=== PATIENT | female | born 1990 | race Caucasian/White ===

== ENCOUNTER → 2019-04-13 | Outpatient (CLI) | payer OTHER ==
[2019-04-13 12:24] LABS: African American GFR (CKD) >90 (>60 ml/min/1.73 sqM); Glucose 75 mg/dL (74-99)
[2019-04-13 12:33] LABS: HCT 38.5 % (34.0-46.0); HGB 12.5 gm/dL (11.4-16.0); MCH 29.2 pg (25.0-35.0); MCHC 32.5 g/dL (31.0-37.0); MCV 89.9 fL (80.0-100.0); Mean Platelet Volume 6.5; Platelet Count 398 k/uL (150-450); RBC 4.28 m/uL (3.80-5.40); RDW 13.3 % (11.5-15.5); WBC 9.9 k/uL (3.8-10.6)
--- NOTE | 2019-04-13 16:54 | US ---
EXAMINATION TYPE: Ultrasound OB <= 14 week fetus DATE OF EXAM: 04/13/2019 12:34 PM COMPARISON: NONE CLINICAL HISTORY: 28-year-old female Z36 CONFIRM DATES. EXAM PERFORMED: Transabdominal (TA) TECHNIQUE: EXAM MEASUREMENTS: GESTATIONAL AGE / DATING Physician Established: (12 weeks/1 days) EDC: 10/25/2019 Dates by LMP: (12 weeks/1 days) EDC: 10/25/2019 Dates by First Scan: No previous this is first scan Dates by Current Scan for: (12 weeks/0 days) EDC: 10/25/2019 MATERNAL ANATOMY Uterus: 14.7 x 7.0 x 8.5 cm Right Ovary: wnl Left Ovary: wnl Post CDS / Adnexa: wnl Presence of free fluid: No Presence of corpus luteal cyst: No Presence of subchorionic bleed: No GESTATION / SURVEY CRL: 5.3 cm (12 weeks/0 days) Yolk Sac (normal less than 6mm): 5.4 mm, upper limits of normal Heart Rate: 160 bpm Rhythm: Normal IUP: Viable IUP Date of LMP: 01/18/2019 Beta HcG (if available): Not available at this time Sanitation Manager notes: Viable IUP, measurements consistent with dates. IMPRESSION: 1. Single live intrauterine with estimated gestational age of 12 weeks 1 day by LMP. Curren t ultrasound biometry is concordant (12 weeks 0 days). 2. Complete survey recommended at 18-20 weeks.
[2019-04-13 18:49] LABS: HIV 1 AB Non-Reactive (Non-Reactive); HIV AB P24 Non-Reactive (Non-Reactive); HIV P24 AG Non-Reactive (Non-Reactive)
[2019-04-14 05:36] LABS: Toxoplasma Antibody (IgG) <3.0 IU/mL (<7.2); Toxoplasma Antibody (IgM) <3.0 AU/mL (<8.0)
== END | disposition home or self-care (01) ==
LOC: RADUSWWP 11:53
PROVIDERS: ATTEND Obstetrics & Gynecology
DX: Z34.81 Encounter for supervision of other normal pregnancy, first trimester (principal); Z3A.20 20 weeks gestation of pregnancy
CPT/HCPCS: 76801; 82565; 82947; 85027; 86762; 86777; 86778; 86780; 86850; 86900; 86901; 87340; 87390

== ENCOUNTER 2019-10-10 19:17 | Observation (INO) | payer OTHER ==
[2019-10-10] MEDS: LACTATED RINGERS 1,000 ML IV ONE ×2 (19:53→20:20)
[2019-10-10] MEDS ORDERED: ONDANSETRON 4 MG/2 ML VIAL IVP ONE (19:54)
[2019-10-10] MEDS ORDERED: ACETAMINOPHEN TAB 500 MG TAB PO STA (20:09)
[2019-10-10 20:11] LABS: Amorphous Sediment,Urine Rare /hpf; Appearance,Urine Cloudy (Clear); Bacteria,Urine Moderate /hpf; Bilirubin,Urine Negative (Negative); Blood,Urine Negative (Negative); Color,Urine Yellow; Glucose,Urine (UA) Negative (Negative); Hyaline Casts,Urine 3 /lpf (0-2); Ketones,Urine 4+ (Negative); Leukocyte Esterase,Urine Large (Negative); Mucus,Urine Few /hpf; Nitrite,Urine Negative (Negative); Protein,Urine 1+ (Negative); Squamous Epithelial Cell,Urine 53 /hpf (0-4); WBC,Urine 29 /hpf (0-5)
[2019-10-10 20:14] LABS: ALT 15 U/L (4-34); AST 28 U/L (14-36); African American GFR (CKD) >90 (>60 ml/min/1.73 sqM); Albumin 3.7 g/dL (3.5-5.0); Alkaline Phosphatase 227 U/L (38-126); Anion Gap 11 mmol/L; Blood Urea Nitrogen 11 mg/dL (7-17); Calcium 9.2 mg/dL (8.4-10.2); Carbon Dioxide 18 mmol/L (22-30); Chloride 105 mmol/L (98-107); Glucose 88 mg/dL (74-99); Non-African American GFR(CKD) >90 (>60 ml/min/1.73 sqM); Potassium 4.1 mmol/L (3.5-5.1); Sodium 134 mmol/L (137-145); Total Protein 6.8 g/dL (6.3-8.2)
[2019-10-10 20:15] LABS: Basophils # (A) 0.1 k/uL (0-0.2); Basophils % (A) 1 %; Eosinophils # (A) 0.1 k/uL (0-0.7); Eosinophils % (A) 1 %; HCT 40.6 % (34.0-46.0); HGB 13.4 gm/dL (11.4-16.0); Lymphocytes # (A) 0.5 k/uL (1.0-4.8); Lymphocytes % (A) 4 %; MCH 30.8 pg (25.0-35.0); MCHC 33.1 g/dL (31.0-37.0); MCV 93.2 fL (80.0-100.0); Mean Platelet Volume 8.3; Monocytes # (A) 0.4 k/uL (0-1.0); Monocytes % (A) 3 %; Neutrophils # (A) 11.6 k/uL (1.3-7.7); Neutrophils % (A) 90 %; Platelet Count 284 k/uL (150-450); RBC 4.35 m/uL (3.80-5.40); RDW 13.4 % (11.5-15.5); WBC 12.8 k/uL (3.8-10.6)
[2019-10-10] MEDS ORDERED: ONDANSETRON 4 MG/2 ML VIAL IVP PRN (20:37)
[2019-10-10] MEDS ORDERED: LACTATED RINGERS 1,000 ML IV ONE (20:37)
[2019-10-10 21:18] VITALS: RESP 18
[2019-10-11 04:10] VITALS: BP 107/62; PULSE 94; TEMP 97.5
--- NOTE | 2019-10-11 06:56 | P.PN ---
Progress Note - Text Progress Note Date: 10/11/19 Patient is sleeping without new complaints. Please see dictated H&P for this patient's admission. Dr. Nair. In summary patient was admitted earlier last evening after having prolonged nausea vomiting. Patient was felt to be dehydrated and given IV hydration. Patient was admitted for observation to rule out labor and due to the hydration. Proximally 3 AM patient felt much better and fell to sleep. heart tones are category 1. Patient's felt to be stable for discharge home follow up with me tomorrow for an OB visit and her scheduled ultrasound. It appears her nausea vomiting has resolved and there is no evidence of maternal compromise.
--- NOTE | 2019-10-11 06:59 | P.DS ---
Providers Date of admission: 10/10/19 20:41 Expected date of discharge: 10/11/19 Attending physician: Bandar Jesus Primary care physician: Stated None Hospital Course: Please see dictated H&P per Dr. Nair and this patient's admission. Brief summary this is a pleasant 29-year-old 2 para 1 female 37-6/7 weeks admitted with prolonged nausea and vomiting and contractions. Patient is given IV hydration admitted for observation. She subsequently felt much better and did go to sleep. Patient was found not to be in labor and the nausea vomiting resolved. Patient's felt stable for discharge home follow up with me tomorrow for an OB ultrasound and visit. Return if her symptoms return or she felt she was in labor. Patient Condition at Discharge: Stable Plan - Discharge Summary New Discharge Prescriptions: No Action Pnv No.95/Ferrous Fum/Folic AC [ Multivitamin Tablet] 1 each PO DAILY Discharge Medication List Pnv No.95/Ferrous Fum/Folic AC [ Multivitamin Tablet] 1 each PO DAILY 10/10/19 [History] Follow up Appointment(s)/Referral(s): Bandar Jesus MD [STAFF PHYSICIAN] - 10/12/19 Patient Instructions/Handouts: Dehydration (DC) Discharge Disposition: HOME SELF-CARE
--- NOTE | 2019-11-02 13:32 | P.HPOB ---
History of Present Illness H&P Date: 11/02/19 Chief Complaint: Intrauterine term: Acute nausea and vomiting Maria C has been nauseous and vomiting throughout the day and she is admitted for IV hydration. She is a prior section. She is a history of cardiac anomaly with her first child and has had a maternal- evaluation for this baby. Other than IV hydration we will continue monitoring and making sure there no other issues or competitions with her . It is noted that she had 4+ ketones and is acutely dehydrated. Past Medical History Past Medical History: No Reported History History of Any Multi-Drug Resistant Organisms: None Reported Past Surgical History: No Surgical Hx Reported Past Psychological History: No Psychological Hx Reported Smoking Status: Never smoker Past Alcohol Use History: Occasional Past Drug Use History: None Reported - Past Family History Father Family Medical History: No Reported History Daughter(s) Additional Family Medical History / Comment(s): first , daughter was born with cleft palette and mitral valve regurgitation Medications and Allergies Home Medications Medication Instructions Recorded Confirmed Type Pnv No.95/Ferrous Fum/Folic AC 1 each PO DAILY 10/10/19 10/18/19 History [ Multivitamin Tablet] Ibuprofen [Motrin] 600 mg PO Q6HR PRN #30 tab 10/19/19 Rx Allergies Allergy/AdvReac Type Severity Reaction Status Date / Time No Known Allergies Allergy Verified 10/18/19 06:07 Exam Osteopathic Statement: *. No significant issues noted on an osteopathic structural exam other than those noted in the History and Physical/Consult. - OBG Physical Exam Breast: both: normal (no masses) Abdomen: bowel sounds normal, no diffuse tenderness, no bruit present, no guarding noted, no hepatomegaly, no splenomegaly, no mass Vulva: both: normal Vagina: normal moisture, no discharge Cervix: no lesion, no discharge Uterus: normal size, normal contour Adnexa: both: normal Anus/Rectum: normal perianal skin, no rectal mass, no hemorrhoids, heme negative Results Result Diagrams: 10/10/19 19:55 10/10/19 19:55
== END 2019-10-11 08:15 | disposition home or self-care (01) ==
LOC: FBPOP 19:17 → 4FBP 20:41
PROVIDERS: ADMIT Obstetrics & Gynecology; ATTEND Obstetrics & Gynecology
DX: O26.893 Other specified pregnancy related conditions, third trimester (principal); E86.0 Dehydration; O21.9 Vomiting of pregnancy, unspecified; Z3A.37 37 weeks gestation of pregnancy; Z79.899 Other long term (current) drug therapy
CPT/HCPCS: 59025; 96374; 80053; 85025; 81001; G0463; G0378 ×2; J2405; 96361; 99214

== ENCOUNTER 2019-10-18 06:03 | Inpatient (IN) | payer OTHER ==
[2019-10-18] MEDS: LACTATED RINGERS 1,000 ML IV SCH ×3 (06:06→12:35)
[2019-10-18] MEDS ORDERED: OXYTOCIN 10 UNIT/ML 1 ML VIAL IM PRN (06:07)
[2019-10-18] MEDS ORDERED: TERBUTALINE 1 MG/ML VIAL SQ PRN (06:07)
[2019-10-18] MEDS ORDERED: LIDOCAINE 0.5% (PF) 5 MG/ML (50 ML SDV) SQ PRN (06:07)
[2019-10-18] MEDS ORDERED: CARBOPROST TROMETHAMINE 250 MCG/ML 1 ML AMP IM PRN (06:07)
[2019-10-18] MEDS ORDERED: METHYLERGONOVINE 0.2 MG/ML 1 ML AMP IM PRN (06:07)
[2019-10-18] MEDS ORDERED: OXYTOCIN 30 UNITS/500 ML NS 30 UNIT in SALINE 1 500ML.BAG IV SCH (06:07)
--- NOTE | 2019-10-18 06:34 | P.HPOB ---
History of Present Illness H&P Date: 10/18/19 Chief Complaint: Requested induction of labor This patient is a pleasant 29-year-old 2 para 1 female estimated date of confinement 10/25/2019 estimated gestational age 39 weeks who presents to labor and delivery for requested induction of labor secondary to maternal discomfort. Patient has a history of a previous infant with a cleft lip and tricuspid regurgitation therefore I did refer her for level III ultrasound and cardiac echo which were normal. is otherwise been uncomplicated with the exception of some mild renal pelvis dilation at 36 weeks which appears to have resolved. Patient's very uncomfortable at this time is requesting inductio n of labor. Review of Systems Genitourinary: Reports Menstruation: Reports amenorrhea Past Medical History Past Medical History: No Reported History History of Any Multi-Drug Resistant Organisms: None Reported Past Surgical History: No Surgical Hx Reported Additional Past Surgical History / Comment(s): wisdom tooth extraction Past Anesthesia/Blood Transfusion Reactions: No Reported Reaction Past Psychological History: No Psychological Hx Reported Smoking Status: Never smoker Past Alcohol Use History: None Reported, Occasional Past Drug Use History: None Reported - Past Family History Father Family Medical History: No Reported History Daughter(s) Additional Family Medical History / Comment(s): first , daughter was born with cleft palette and mitral valve regurgitation Medications and Allergies Home Medications Medication Instructions Recorded Confirmed Type Pnv No.95/Ferrous Fum/Folic AC 1 each PO DAILY 10/10/19 10/18/19 History [ Multivitamin Tablet] Allergies Allergy/AdvReac Type Severity Reaction Status Date / Time No Known Allergies Allergy Verified 10/18/19 06:07 Exam Vital Signs Temp Pulse Resp BP 10/18/19 06:09 97.6 F 100 16 130/79 Intake and Output 10/17/19 10/17/19 10/18/19 14:59 22:59 06:59 Other: Weight 77.564 kg - OBG Physical Exam Abdomen: bowel sounds normal, no diffuse tenderness, no bruit present, no guarding noted, no hepatomegaly, no splenomegaly, no mass Vulva: both: normal Cervix: Cervix is 3 cm dilated 80% effaced and -2 station. Uterus: enlarged (Fundal height is 39 cm) Results blood work shows she is A positive, rubella immune, RPR nonreactive, hepatitis B negative, HIV is nonreactive, Glucola was abnormal with a normal three-hour gtt., group B strep was negative, cardiac echo was normal, level III ultrasound was normal, most recent ultrasound on the shows estimated weight to be 7 lbs. 13 oz. Assessment and Plan Assessment: This is a pleasant 29-year-old 2 para 1 female 39-0/7 weeks gestation who is admitted to labor and delivery for requested induction of labor. Plan is induction of labor and anticipate vaginal delivery. (1) 39 weeks gestation of Current Visit: Yes Status: Acute Code(s): Z3A.39 - 39 WEEKS GESTATION OF SNOMED Code(s): 17553191 (2) Elective induction of labor planned Current Visit: Yes Status: Acute Code(s): EFE1900 - SNOMED Code(s): 579459168
[2019-10-18 07:28] LABS: Basophils # (A) 0.1 k/uL (0-0.2); Basophils % (A) 1 %; Eosinophils # (A) 0.2 k/uL (0-0.7); Eosinophils % (A) 1 %; HCT 41.3 % (34.0-46.0); HGB 13.6 gm/dL (11.4-16.0); Lymphocytes # (A) 2.6 k/uL (1.0-4.8); Lymphocytes % (A) 20 %; MCHC 32.8 g/dL (31.0-37.0); MCV 91.4 fL (80.0-100.0); Mean Platelet Volume 8.8; Monocytes # (A) 0.6 k/uL (0-1.0); Monocytes % (A) 5 %; Neutrophils # (A) 9.1 k/uL (1.3-7.7); Neutrophils % (A) 71 %; Platelet Count 440 k/uL (150-450); RBC 4.52 m/uL (3.80-5.40); RDW 13.2 % (11.5-15.5); WBC 12.9 k/uL (3.8-10.6)
[2019-10-18] MEDS ORDERED: ROPIVACAINE 5MG/ML 20ML VIAL ONE (11:40)
[2019-10-18] MEDS ORDERED: SODIUM CHLORIDE 0.9% 100 ML BAG ONE (11:40)
[2019-10-18] MEDS ORDERED: fentaNYL (PF) 50 MCG/ML 5 ML AMP ONE (11:40)
--- NOTE | 2019-10-18 17:39 | P.PROBDLV ---
Vaginal Delivery Note - . Vaginal Delivery Note: Normal vaginal delivery viable male Apgars 9 and 10 delivery time is 1723 hrs. Please see dictated H&P for intimate details of this patient's admission. In brief summary this is a pleasant 29-year-old 2 para 1 female 39 weeks gestation who is admitted to labor and delivery for requested induction of labor. Patient is admitted she is 2-3 cm dilated is artificial rupture membranes for clear fluid. Labor is induced with Pitocin per protocol. Patient 's labor progresses and a proximally 5 cm she gets an epidural for pain control. Patient continues to progress normally and gets to complete and pushes the head to the perineum. Patient pushes for approximately 25 minutes. Posterior perineum was supported and we have controlled delivery of infant's head over the intact perineum. Mouth and nares are bulb suctioned. There is no evidence of a nuchal cord. With gentle downward traction we then have delivery the anterior posterior shoulder and rest this 's body. This is a vigorous viable male infant Apgars are 9 and 10 delivery time is 1723 hrs. After delivery of the infant the umbilical cord is allowed quit pulsating is then doubly clamped and cut. The placenta spontaneously delivered intact. Estimated blood loss is 150 mL. Inspection of the perineum shows a small first-degree perineal laceration is repaired with a [id number] 3-0 Vicryl usual fashion good reapproximation is noted. All counts are correct 3. There are no complications. Infant and mother are stable delivery room.
[2019-10-18] MEDS ORDERED: WITCH HAZEL 1 EACH MED..PAD TOPICAL PRN (17:42)
[2019-10-18] MEDS ORDERED: diphenhydrAMINE 25 MG CAP PO PRN (17:42)
[2019-10-18] MEDS ORDERED: OXYTOCIN 20 UNITS/1000 ML NS 1,000 ML IV SCH (17:42)
[2019-10-18] MEDS ORDERED: SIMETHICONE 80 MG CHEWABLE PO PRN (17:42)
[2019-10-18] MEDS ORDERED: IBUPROFEN 600 MG TAB PO PRN (17:42)
[2019-10-18] MEDS ORDERED: LANOLIN CREAM 5 GM TUBE TOPICAL PRN (17:42)
[2019-10-18] MEDS ORDERED: ZOLPIDEM 5 MG TAB PO PRN (17:42)
[2019-10-18] MEDS ORDERED: HYDROCORTISONE 2.5% RECTAL CREAM 30 GM TUBE RECTAL PRN (17:42)
[2019-10-18] MEDS ORDERED: diphenhydrAMINE 50 MG/ML 1 ML VIAL IVP PRN (17:42)
[2019-10-18] MEDS ORDERED: BENZOCAINE/MENTHOL SPRAY 1 GM/SPRAY AEROSOL TOPICAL PRN (17:42)
[2019-10-18] MEDS: SENNOSIDES-DOCUSATE SODIUM 1 EACH TAB PO SCH ×2 (19:40→22:09)
[2019-10-19] MEDS: ACETAMINOPHEN TAB 325 MG TAB PO PRN ×2 (02:39→07:44)
--- NOTE | 2019-10-19 06:24 | P.PNOBGVD ---
Subjective - Subjective Patient reports: Reports appetite normal, Reports voiding normally, Reports pain well controlled, Reports ambulating normally : doing well Objective - Latest Vital Signs Latest vital signs: Vital Signs Temp Pulse Resp BP Pulse Ox 10/19/19 03:31 97.9 F 87 16 106/70 97 10/19/19 00:00 97.5 F L 77 16 107/79 98 10/18/19 19:45 97.7 F 98 16 112/68 10/18/19 19:15 98.1 F 93 16 116/71 10/18/19 18:43 106 H 18 146/72 10/18/19 18:28 87 18 141/67 10/18/19 18:13 103 H 18 137/69 10/18/19 17:58 98 18 132/63 10/18/19 17:43 98.2 F 106 H 18 126/62 Intake and Output 10/18/19 10/18/19 10/19/19 14:59 22:59 06:59 Output Total 300 Balance -300 Output: Urine 150 Estimated Blood Loss 150 Other: # Voids 2 - Exam Lungs: bilateral: normal Chest: Normal S1, Normal S2 Extremities: Present: normal Abdomen: Present: normal appearance, soft Uterus: Present: normal, firm - Labs Labs: Abnormal Lab Results - Last 24 Hours (Table) 10/18/19 Range/Units 06:05 WBC 12.9 H (3.8-10.6) k/uL Neutrophils # 9.1 H (1.3-7.7) k/uL Assessment and Plan Assessment: Patient is resting without complaints. She wishes to go home later today. Vital signs are stable she is afebrile. Uterus is firm nontender she's having normal lochia. My impression is a normal course. Plan is to continue routine care and discharge home later today. (1) 39 weeks gestation of Current Visit: Yes Status: Acute Code(s): Z3A.39 - 39 WEEKS GESTATION OF SNOMED Code(s): 45443237 (2) Elective induction of labor planned Current Visit: Yes Status: Acute Code(s): [id number] - SNOMED Code(s): 293717983
--- NOTE | 2019-10-19 06:28 | P.DS ---
Providers Date of admission: 10/18/19 06:03 Expected date of discharge: 10/19/19 Attending physician: Bandar Jesus Primary care physician: Stated None - Discharge Diagnosis(es) (1) 39 weeks gestation of Current Visit: Yes Status: Acute (2) Elective induction of labor planned Current Visit: Yes Status: Acute Hospital Course: Please see dictated H&P for intimate details of this patient's admission. Brief summary this is a pleasant 29-year-old 2 para 1 female 39 weeks gestation admitted to labor and delivery for requested induction of labor. Patient is admitted undergoes uncomplicated induction of labor was on have a vaginal delivery viable male . Please see dictated delivery note. day #1 this patient is without complaints she wishes to go home. Patient's felt to be stable for discharge home follow up with me in 6 weeks. Procedures: Induction of labor and normal vaginal delivery Patient Condition at Discharge: Good Plan - Discharge Summary New Discharge Prescriptions: New Ibuprofen [Motrin] 600 mg PO Q6HR PRN #30 tab PRN Reason: Mild Pain Or Fever >= 100.5 No Action Pnv No.95/Ferrous Fum/Folic AC [ Multivitamin Tablet] 1 each PO DAILY Discharge Medication List Pnv No.95/Ferrous Fum/Folic AC [ Multivitamin Tablet] 1 each PO DAILY 10/10/19 [History] Ibuprofen [Motrin] 600 mg PO Q6HR PRN #30 tab 10/19/19 [Rx] Follow up Appointment(s)/Referral(s): Bandar Jesus MD [STAFF PHYSICIAN] - 11/30/19 1:45 pm Patient Instructions/Handouts: Vaginal Delivery (DC) Activity/Diet/Wound Care/Special Instructions: No intercourse or anything per vagina for 6 weeks. Please call if any fever, chills, excessive vaginal bleeding, and/or abdominal pain. Discharge Disposition: HOME SELF-CARE
[2019-10-19] MEDS: SENNOSIDES-DOCUSATE SODIUM 1 EACH TAB PO SCH (07:44)
[2019-10-19 13:53] VITALS: RESP 18
[2019-10-19 18:22] VITALS: BP 112/68; PULSE 78; TEMP 98.3
== END 2019-10-19 18:56 | disposition home or self-care (01) | DRG 807 ==
LOC: 4FBP 06:03
PROVIDERS: ADMIT Obstetrics & Gynecology; ATTEND Obstetrics & Gynecology
PROC: 0HQ9XZZ Repair Perineum Skin, External Approach (ICD-10-PCS; principal; 2019-10-18)
PROC: 10907ZC Drainage of Amniotic Fluid, Therapeutic from Products of Conception, Via Natural or Artificial Opening (ICD-10-PCS; principal; 2019-10-18)
PROC: 3E033VJ Introduction of Other Hormone into Peripheral Vein, Percutaneous Approach (ICD-10-PCS; principal; 2019-10-18)
PROC: 10E0XZZ Delivery of Products of Conception, External Approach (ICD-10-PCS; principal; 2019-10-18)
PROC: 3E0R3BZ Introduction of Anesthetic Agent into Spinal Canal, Percutaneous Approach (ICD-10-PCS; principal; 2019-10-18)
PROC: 00HU33Z Insertion of Infusion Device into Spinal Canal, Percutaneous Approach (ICD-10-PCS; principal; 2019-10-18)
DX: O99.62 Diseases of the digestive system complicating childbirth (principal); Z37.0 Single live birth; K21.9 Gastro-esophageal reflux disease without esophagitis; O70.0 First degree perineal laceration during delivery; Z3A.39 39 weeks gestation of pregnancy; Z82.49 Family history of ischemic heart disease and other diseases of the circulatory system; Z84.89 Family history of other specified conditions
CPT/HCPCS: 85025; 86850; 86900; 86901